=== PATIENT | female | born 1970 | race Caucasian/White ===

== ENCOUNTER → 2020-02-27 10:27 | Outpatient (CLI) | payer OTHER, SELFPAY ==
--- NOTE | 2020-02-27 10:29 | DI.RAD.S_ITS ---
PROCEDURE: XR LUMBAR SPINE 2-3V INDICATIONS: L sided sciatica, r/o bony abnormality TECHNIQUE: 3 views of the lumbar spine were acquired. COMPARISON: None. FINDINGS: Bones: 5 [id number] vertebrae are present. Trace retrolisthesis L5-S1. There is otherwise normal bony alignment. No vertebral body compression fractures. Moderate degenerative disc loss at L4-5 and mild anterior endplate spur formation. Mild facet hypertrophy and sclerosis at L5-S1. No suspicious bony lesions. Soft tissues: Overlying bowel gas pattern is normal. No suspicious soft tissue calcifications. Surgical clips in the right upper quadrant and right pelvis. IMPRESSION: 1. Degenerative disc and endplate disease at L4-5. 2. Degenerative facet disease with trace retrolisthesis L5-S1. Dictated by: Nikky Darling M.D. on 02/27/2020 at 10:43 Approved by: Nikky Darling M.D. on 02/27/2020 at 10:45
== END ==
PROVIDERS: Referring Provider Physician Assistant; Visit Provider Physician Assistant
DX: M51.16 Intervertebral disc disorders with radiculopathy, lumbar region (principal); M47.27 Other spondylosis with radiculopathy, lumbosacral region
CPT/HCPCS: 72100

== ENCOUNTER → 2021-02-08 09:00 | Outpatient (CLI) | payer OTHER, SELFPAY ==
[2021-02-08] MEDS: COVID-19 VACC #1, MRNA(MOD) 100 MCG/0.5 ML VIAL IM (09:02)
== END ==
PROVIDERS: Visit Provider Internal Medicine
DX: Z23 Encounter for immunization (principal)
CPT/HCPCS: 0011A; 91301

== ENCOUNTER → 2021-02-12 12:29 | Outpatient (CLI) | payer OTHER, SELFPAY ==
[2021-02-12 13:03] LABS: COVID19 -Nasal RAPID Negative (Negative)
== END ==
PROVIDERS: PCP Internal Medicine; Visit Provider Physician Assistant
DX: Z20.822 Contact with and (suspected) exposure to COVID-19 (principal)
CPT/HCPCS: 87635

== ENCOUNTER 2021-02-13 13:20 | Day surgery (SDC) | payer OTHER, SELFPAY ==
[2021-02-13] VITALS (7 sets, daily range): BP systolic 129–147; BP diastolic 78–87; PULSE 68–76; RESP 12–16; TEMP 36–37; O2SAT 92–96; BMI 31.1
[2021-02-13] MEDS: SODIUM CHLORIDE 0.9% 1,000 ML 84 ML IV (14:10)
--- NOTE | 2021-02-13 14:13 | PM.HP.1 ---
History of Present Illness History of Present Illness Date Patient Seen: 02/13/21 Chief complaint: SCREENING COLONOSCOPY Narrative: Colorectal cancer screening Patient History Medical History (Updated 02/27/20 @ 10:24 by Sera Escudero PA-C) Sciatica Meds Home Medications and Allergies Home Medications Medication Instructions Recorded Confirmed Type naproxen 500 mg PO BID PRN 02/13/21 02/13/21 History sertraline [Zoloft] 100 mg PO DAILY 02/13/21 02/13/21 History Allergies Allergy/AdvReac Type Severity Reaction Status Date / Time Penicillins Allergy Mild rash Verified 02/13/21 13:41 Exam Narrative Exam Narrative: Oropharynx free of lesions Chest clear to auscultation percussion Cardiac exam reveals no S3 or murmur Assessment & Plan Assessment & Plan narrative: Need for colorectal cancer screening, 1st colonoscopy. Risks, benefits, alternatives have been explained.
--- NOTE | 2021-02-13 14:14 | PM.OP.ENDO ---
Operative Date/Time/Diagnoses Date of procedure: 02/13/21 Pre-op diagnosis: See indication and findings the Procedure & Clinicians Study performed: Colonoscopy Indications: Screening Surgeon: Melvi Ron Procedure Notes Procedure in detail: After informed consent was obtained patient was placed in left lateral decubitus position. The video colonoscope was introduced the rectum slowly advanced cecum. On slow withdrawal mucosa was carefully examined. The scope was removed. Patient tolerated procedure well. Blood loss none Complications none Sedation Total sedation time 26 minutes Versed 10 mg fentanyl 200 mg IV titration Findings 1. Colonoscopy normal to cecum other than rare scattered diverticula in the left colon With no family history negative colonoscopy she does not need follow-up colonoscopy for 10 years. Nor does she need any stool based screening evaluation before 10 years.
[2021-02-13] MEDS: MIDAZOLAM 5 MG/5 ML VIAL IV (14:32)
[2021-02-13] MEDS: fentaNYL 250 MCG/5 ML INJ IV (14:33)
--- NOTE | 2021-02-13 15:52 | SUR.PHASEII ---
1540 Sleepy, oriented, denies pain/nausea. Home with spouse. Stable
== END 2021-02-13 15:40 | disposition home or self-care (01) ==
PROVIDERS: Admitting Provider Internal Medicine Gastroenterology; PCP Internal Medicine; Referring Provider Internal Medicine Gastroenterology; Visit Provider Internal Medicine Gastroenterology
PROC: 0DJD8ZZ Inspection of Lower Intestinal Tract, Via Natural or Artificial Opening Endoscopic (ICD-10-PCS; CPT 45378; principal; 2021-02-13 14:30)
DX: Z12.11 Encounter for screening for malignant neoplasm of colon (principal); K57.30 Diverticulosis of large intestine without perforation or abscess without bleeding
CPT/HCPCS: 45378; J2250; J3010

== ENCOUNTER → 2021-03-08 08:52 | Outpatient (CLI) | payer OTHER, SELFPAY ==
[2021-03-08] MEDS: COVID-19 VACC #2, MRNA(MOD) 100 MCG/0.5 ML VIAL IM (08:57)
== END ==
PROVIDERS: PCP Internal Medicine; Visit Provider Internal Medicine
DX: Z23 Encounter for immunization (principal)
CPT/HCPCS: 0012A; 91301

== ENCOUNTER → 2023-10-09 07:54 | Outpatient (CLI) | payer OTHER, SELFPAY | PROVIDERS: PCP Internal Medicine; Visit Provider Nurse Practitioner Family | DX: R30.0 Dysuria (principal) | CPT/HCPCS: 87077; 87086; 87186 ==